=== PATIENT | male | born 1980 ===

== ENCOUNTER → 2022-09-18 07:36 | Outpatient (CLI) | payer OTHER, SELFPAY ==
--- NOTE | ~2022-09-18 | MR_ITS ---
EXAMINATION: MR knee RT wo con DATE: 09/18/2022 10:41 INDICATION: Chronic right knee pain TECHNIQUE: Magnetic resonance imaging (MRI) of the right knee was performed without intravenous contr ast. Sequences included axial PD-weighted FS FSE, coronal PD-weighted FSE and PD-weighted FS FSE, sag ittal PD-weighted FSE, and sagittal T2-weighted FS FSE. COMPARISON: None. FINDINGS: Medial compartment: Mild diffuse cartilage thinning. Meniscus intact. Lateral compartment: Mild diffuse cartilage thinning. Meniscus intact. Patellofemoral compartment: Multifocal full-thickness areas of cartilage signal abnormality, with subchondral cysts. Retinacula i ntact. Ligaments and tendons: ACL, PCL, MCL, and LCL are intact. Remaining flexor and extensor tendons are intact. Fluid: No significant joint fluid. Osseous/other: No suspicious focal or diffuse marrow signal. IMPRESSION: Moderate chondromalacia patellae. Reviewed, dictated and finalized at location [facility]
== END ==
PROVIDERS: Visit Provider Orthopaedic Surgery
DX: M25.561 Pain in right knee (principal); G89.29 Other chronic pain
CPT/HCPCS: 73721